=== PATIENT | male | born 1955 | race Hispanic/Latino ===

== ENCOUNTER 2017-08-08 13:30 | Inpatient (IN) | payer MEDICARE, BC ==
[2017-08-08 13:48] VITALS: BMI 29.1
--- NOTE | 2017-08-08 13:58 | ED PDOC ---
Arrival/HPI - General Chief Complaint: Psychiatric Evaluation Time Seen by Provider: 08/08/17 13:58 - History of Present Illness Narrative History of Present Illness (Text): 61 y/o M c PMHx HTN, seizure, CVA, hypothyroidism, joint replacements transferred from [facility] for psychiatric admission due to major depression. Medical clearance performed at transferring institution. Patient denies any current fever, dyspnea, or vomiting. Past Medical History - Cardiac Hx Cardiac Disorders: Yes Hx Hypertension: Yes - Neurological Hx Neurological Disorder: Yes HX Cerebrovascular Accident: Yes Hx Seizures: Yes - Endocrine/Metabolic Hx Endocrine Disorders: Yes Hx Hypothyroidism: Yes - Psychiatric Hx Psychophysiologic Disorder: Yes Hx Anxiety: Yes Hx Depression: Yes Hx Substance Use: Yes (last use 10 yrs ago) - Surgical History Hx Joint Replacement: Yes (bilateral knees and bilateral hips) Family/Social History Family/Social History: No Known Family HX Smoking Status: Never Smoked Hx Alcohol Use: Yes (last drink Saturday) Frequency of alcohol use: Daily Hx Substance Use: Yes (last use 10 yrs ago) Allergies/Home Meds Allergies/Adverse Reactions: Allergies No Known Allergies Allergy (Verified 08/08/17 13:47) Home Medications: Home Meds Medication Instructions Recorded Confirmed Levothyroxine [Synthroid] 50 mcg PO DAILY 08/08/17 08/08/17 Metoprolol Succinate [Toprol XL] 25 mg PO BID 08/08/17 08/08/17 levETIRAcetam [Keppra] 500 mg PO BID 08/08/17 08/08/17 Review of Systems - Physician Review All systems were reviewed & negative as marked: Yes - Review of Systems Constitutional: absent: Fevers Respiratory: absent: SOB Physical Exam - Physical Exam Narrative Physical Exam (Text): Gen: NAD Head: NC Eyes: PERRL ENT: MMM Neck: Supple CV: Regular rate Lungs: No accessory muscle use Abd: Soft, NT Extremities: Tremulous Neuro: Alert, no focal deficit Disposition/Present on Arrival - Present on Arrival Any Indicators Present on Arrival: No History of DVT/PE: No History of Uncontrolled Diabetes: No Urinary Catheter: No History of Decub. Ulcer: No History Surgical Site Infection Following: None - Disposition Have Diagnosis and Disposition been Completed?: Yes Diagnosis: Major depression Disposition: HOSPITALIZED Disposition Time: 13:58 Patient Plan: Admission Condition: GUARDED Forms: [facility] ([place])
[2017-08-08] MEDS ORDERED: Magnesium Hydroxide Susp 30 ml UD PO PRN (16:44)
[2017-08-08] MEDS ORDERED: Alum-Mag Hydrox-Simethicone Susp (30 mL) PO PRN (16:44)
[2017-08-08 17:00] VITALS: O2SAT 99
--- NOTE | 2017-08-08 17:52 | PCM.BM ---
<RojelioValente - Last Filed: 08/08/17 17:49> Treatment Plan Problems - Problems identified on initial assessmt ANXIETY RE ALCOHOL ABUSE Date Initiated: 08/08/17 Time Initiated: 17:50 Assessment reference: HP, NA Status: Active DEPRESSIVE MOOD Date Initiated: 08/08/17 Time Initiated: 17:50 Assessment reference: HP, NA Status: Active DENIAL Date Initiated: 08/08/17 Time Initiated: 17:51 Assessment reference: HP, NA Status: Active Treatment assets and liabiliti Patient Assests: cooperative, negotiates basic needs, cognitively intact Patient Liabilities: financial problems, poor support system, substance abuse - Milieu Protocol Maintain good personal hygiene: daily Encourage regular showers, daily Remind patient to perform daily oral care, daily Assist patient to perform ADL's Maintain personal safety: daily Educate patient to report safety concerns to staff, daily Monitor environment for contraband/sharps Medication safety: Monitor for expected outcome, potential side effects: daily, Assess barriers to learning: daily, Assess readiness for medication education: daily Discharge/Continuing Care - Education Needs Education Needs: Patient Medication, Patient Diagnosis/Disease Process, Patient Coping Skills, Patient Community resources, Patient Activities of Daily Living, Patient Health Practices/Safety, Patient Personal Hygiene/Grooming, Patient Aftercare Safety Plan - Discharge Discharge Criteria: Free of Suicidal thoughts, Free of Homicidal thoughts, Free of agitation <Kimberly Orta - Last Filed: 08/09/17 13:29> Family Contact Family involvement: Famliy/SO not involved <Kalie Chacon - Last Filed: 08/09/17 15:24>
[2017-08-09] MEDS: Levothyroxine 50 MCG TAB PO SCH (06:05)
[2017-08-09 07:42] LABS: BASO # 0.01 K/mm3 (0.0-2.0); BASO % 0.2 % (0.0-3.0); EOS # 0.1 (0.0-0.7); EOS % 2.3 % (1.5-5.0); GRAN # 3.45 (1.4-6.5); LYMPH # 1.6 (1.2-3.4); LYMPH % 27.8 % (22.0-35.0); MEAN CELL VOLUME 98.9 fl (80.0-105.0); MEAN CORPUSCULAR HEMOGLOBIN 33.9 pg (25.0-35.0); MEAN CORPUSCULAR HGB CONC 34.3 g/dl (31.0-37.0); MEAN PLATELET VOLUME 9.3 fl (7.0-11.0); MONO # 0.6 (0.1-0.6); MONO % 9.7 % (1.0-6.0); RBC 3.54 10^6/uL (3.5-6.1); RED CELL DISTRIBUTION WIDTH 15.2 % (11.5-14.5); WHITE BLOOD COUNT 5.8 10^3/ul (4.5-11.0)
[2017-08-09 08:04] LABS: ALB/GLOB RATIO 1.1 (1.1-1.8); ALBUMIN 3.5 g/dL (3.0-4.8); ALT/SGPT 58 U/L (7-56); AST/SGOT 77 U/L (17-59); BLOOD UREA NITROGEN 11 mg/dL (7-21); CALCIUM 8.6 mg/dL (8.4-10.5); GFR AFRICAN-AMERICAN > 60; GFR NON-AFRICAN AMERICAN > 60
[2017-08-09] MEDS: Multivitamin With Minerals Tab PO SCH (08:21)
[2017-08-09 11:29] LABS: IRON 57 ug/dL (45-180)
[2017-08-09 11:38] LABS: % IRON SATURATION 22 % (20-55); TOTAL IRON BINDING CAPACITY 260 ug/dL (261-462)
--- NOTE | 2017-08-09 14:30 | PCM.PSYCH ---
Initial Psychiatric Evaluation - Initial Psychiatric Evaluation Legal Status: Capacity Chief Complaint (in patient's own words): I am depressed Patient's Reaction to Hospitalization: Patient looking forward to some mood relief and stabilization of his alcohol withdrawal syndrome History of Present Illness and Precipitating Events: Patient with a long history of alcohol and other substance use. Eating back to his teens. 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 but has been on disability for the past 10 or so years because of orthopedic problems that have left him with ambulatory difficulties and a psychological scar as he is an ex- athlete who can no longer ambulate with facility. His alcohol and other substances including heroin, cocaine, Meg's Quaalude opiates have the led to a disrupted interpersonal relationships, but with the having been for several years and having other relationships all ending because of his substance use. His career as a teenager ended because of his substance use. He has one brother. His father had an alcohol history. The patient in the context of his present alcohol binge, is not under the care of a psychiatrist. He had tried to reach one in [facility] but without success. The for a number of years he has been under the care of a Dr. Kiya JEFFERS in [place] who had maintained him on Effexor or her target the patient has been hospitalized in detoxes/rehabs many times. He did make one suicide attempt by overdosing last year. Current Medications: Active Medications Generic Name Dose Route Start Last Admin Trade Name Freq PRN Reason Stop Dose Admin Acetaminophen 650 mg 08/08/17 16:44 08/09/17 03:31 Tylenol 325mg Tab PO 650 mg Q4 PRN Administration Pain, moderate (4-7) Al Hydrox/Mg Hydrox/Simethicone 30 ml 08/08/17 16:44 Maalox Plus 30 Ml PO DAILY PRN Upset Stomach Chlordiazepoxide 50 mg 08/08/17 16:19 08/09/17 10:59 Librium PO 50 mg Q4 PRN Administration Symptoms of alcohol withdrawl Protocol Folic Acid 1 mg 08/09/17 08:00 08/09/17 08:19 Folic Acid PO 1 mg DAILY JULIA Administration Levetiracetam 500 mg 08/08/17 16:30 08/09/17 08:19 Keppra PO 500 mg BID JULIA Administration Levothyroxine Sodium 50 mcg 08/09/17 06:00 08/09/17 06:05 Synthroid PO 50 mcg 0600 JULIA Administration Magnesium Hydroxide 30 ml 08/08/17 16:44 Milk Of Magnesia PO DAILY PRN Constipation Metoprolol Tartrate 25 mg 08/08/17 16:30 08/09/17 08:19 Lopressor PO 25 mg BID JULIA Administration Multivitamins/Minerals 1 tab 08/09/17 08:00 08/09/17 08:21 Therapeutic-M Tab PO 1 tab 0800 JULIA Administration Naltrexone HCl 50 mg 08/09/17 12:30 Revia PO DAILY JULIA Thiamine HCl 100 mg 08/09/17 08:00 08/09/17 08:19 Vitamin B1 Tab PO 100 mg DAILY JULIA Administration Trazodone HCl 50 mg 08/09/17 12:23 Desyrel PO HS PRN Insomnia Past Psychiatric History - Past Psychiatric History Prior Professional Help: Multiple detoxes and rehabs Prior Psychiatric Treatment: As above History of Abuse: Denies History of ETOH/Drug Use: Since teens History of Family Illness: Father has history of alcoholism. Several other relatives have had substance abuse problems. Pertinent Medical Hx (Current Medical&Sleep Prob, Allergies): Allergies Allergy/AdvReac Type Severity Reaction Status Date / Time iodine Allergy RASH Verified 05/23/17 07:30 Gabapentin [Neurontin] 300 mg PO Q8 #90 cap 05/15/17 Levothyroxine [Synthroid] 100 mcg PO DAILY@0630 #30 tab 05/15/17 Multimineral/Multivitamin [Therapeutic-M Tab] 1 tab PO DAILY tab 05/15/17 amLODIPine [Norvasc] 5 mg PO BID #60 tab 05/15/17 Divalproex [Depakote DR(*BID*)] 500 mg PO BID #60 tcp 05/30/17 Folic Acid 1 mg PO DAILY tab 05/30/17 Thiamine [Vitamin B1 Tab] 100 mg PO DAILY tab 05/30/17 Venlafaxine [Effexor XR] 150 mg PO DAILY #30 cer 05/30/17 Nystatin [Nystop Topical Powder] 1 applic TOP BID #1 bottle 05/31/17 Levothyroxine [Synthroid] 50 mcg PO DAILY 08/08/17 Metoprolol Succinate [Toprol XL] 25 mg PO BID 08/08/17 levETIRAcetam [Keppra] 500 mg PO BID 08/08/17 Mental Status Examination - Affect Affect: Depressed - Motor Activity Motor Activity: Calm - Reliability in Providing Information Reliability in Providing Information: Good - Speech Speech: Organized - Mood Mood: Neutral - Formal Thought Process Formal Thought Process: No Impairment - Obsessions/Compulsions Obsessions: No Compulsions: No - Cognitive Functions Orientation: Person, Place, Situation, Time Sensorium: Alert Attention/Concentration: Attentive Abstract Thinking: As evidence by literal perception of proverbs Estimate of Intelligence: Above Average Judgement: Intact, as evidence by: Insight regarding need for hospitalization Memory: Recent intact, as evidence by: Other, Remote intact, as evidenced by: Other - Risk Risk: Seizure, Withdrawal, Falls, Diminished functioning - Strength & Assets Inventory Strength & Assets Inventory: Intelligence, Education, Life experience, Cooperative - Limitations Limitations: Living alone, Other (Chronicity) DSM 5 DX - DSM 5 DSM 5 Diagnosis: Depression not otherwise specified Alcohol withdrawal syndrome Alcohol use disorder Polysubstance use disorderin remission Severe osteoarthritis - Recommended/Plan of Treatment Treatment Recommendations and Plan of Treatment: Symptom stabilization followed by referral to an intensive outpatient program Projected ELOS: One week Prognosis: Guarded
--- NOTE | 2017-08-09 15:50 | US ---
HISTORY: elevated lfts r/o fatty liver COMPARISON: None. TECHNIQUE: Sonographic evaluation of the right upper quadrant of the abdomen. FINDINGS: LIVER: Measures 16.7 cm in length. Patent portal vein. Portal venous flow: Hepatopetal. Unremarkable echogenicity of the liver parenchyma. No mass. No intrahepatic bile duct dilatation. GALLBLADDER: Unremarkable. No gallstones. COMMON BILE DUCT: Measures 5.3 mm. No stones. No dilatation. PANCREAS: Unremarkable as visualized. No mass. No ductal dilatation. RIGHT KIDNEY: Measures 5.0 x 9.7 cm in length. Normal echogenicity. No calculus, mass, or hydronephrosis. AORTA: No aneurysmal dilatation. IVC: Unremarkable. OTHER FINDINGS: None . IMPRESSION: No significant or acute findings to account for/ related to the clinical presentation.
[2017-08-09 16:39] LABS: HEPATITIS B SURFACE AG Negative (NEGATIVE)
[2017-08-09 16:41] LABS: FOLATE 15.4 ng/mL
[2017-08-09 16:45] LABS: HEPATITIS A IGM NEGATIVE (NEGATIVE); HEPATITIS B CORE AB NEGATIVE (NEGATIVE)
[2017-08-09 16:57] LABS: HEPATITIS C ANTIBODY NEGATIVE (NEGATIVE)
[2017-08-09] MEDS: ACAMPROSATE CALCIUM 333 MG PO SCH (17:45)
--- NOTE | 2017-08-10 01:18 | CON ---
DATE: 08/09/2017 MEDICAL CONSULTATION HISTORY OF PRESENT ILLNESS: This 61-year-old male was examined at his bedside. This case was reviewed in detail with himself and nurse, Valente Serrato, registered nurse. The patient is admitted to the [facility] with acute alcohol toxicity experiencing alcohol withdrawal syndrome. He has a longstanding history of alcohol abuse and misuse and is under the psychiatric followup of Dr. Morfin. The patient states he has chronic anxiety and depression and he is aware of chronic hypertension, hypothyroidism and degenerative arthritis. He states he is status post right and left hip replacements. The left hip was replaced twice and he is status post bilateral knee replacement and he is a retired professional plumber's helper. MEDICATIONS: Outpatient medications according to the patient include Keppra, Toprol, Synthroid, Norvasc, Effexor, thiamine, multivitamin, Neurontin, folic acid, and Depakote. ALLERGIES: THE PATIENT STATES HE IS ALLERGIC TO IODINE. SOCIAL HISTORY: He is a smoker, drinker and has a history of drug misuse. REVIEW OF SYSTEMS: CONSTITUTIONAL: Denied fever or chills. HEENT: Eyes, denied change in visual acuity. Ear review, denied hearing loss. Dentition, has poor dentition. NECK: Denied stiffness. CARDIAC: He has a history of chronic hypertension. PULMONARY: Denied cough or hemoptysis. GI: Denied hematemesis or melena. : Denied dysuria. SKIN: No rash. VASCULAR: No claudication. PSYCHOLOGICAL: Chronic depression, chronic anxiety, alcoholism. NEURO: He is markedly deconditioned and has history of alcoholic seizures. ENDOCRINOLOGICAL: Denied knowledge of diabetes mellitus. FAMILY HISTORY: Father at 53 of complications of alcohol abuse, mother at 80 of lung cancer. PHYSICAL EXAMINATION: VITAL SIGNS: Temperature 98.1, respirations 20, pulse 73, blood pressure 140/72, pulse ox 99% room air. GENERAL: The patient is alert, oriented and easily conversant. HEENT: Head: Normocephalic, atraumatic. Eyes: No icterus. Ears: Clear. Throat: Noninjected. Poor dentition. NECK: No stiffness. HEART: S1, S2. LUNGS: Clear. ABDOMEN: Soft. EXTREMITIES: No edema. SKIN: No rash. VASCULAR: Legs warm to touch. PSYCHOLOGICAL: Alert and oriented x3. NEURO: Grossly intact, but deconditioned. LABORATORY DATA: White count 5,800, hemoglobin 12, hematocrit 35, platelets 192,000. Sodium 137, K 3.8, chloride 103, bicarb 23, BUN 11, creatinine 0.8, random blood sugar 95, bilirubin 0.6, AST high 77, ALT high 58, alk phos normal 47. Vitamin B12 level 294. Folic acid 15.4, normal. Percent saturation 22; ferritin 306, normal; T4 normal, 5.9. TSH 4.41, normal. Hepatitis A, B, C serology is negative. IMPRESSION: This is a 61-year-old male with chronic alcoholism, history of alcohol abuse and misuse, chronic anxiety, chronic depression, history of alcoholic seizure syndrome, history of drug abuse, degenerative arthritis, status post hip and knee replacements, deconditioning, chronic hypertension, hypothyroidism and anemia of chronic disease. PLAN: The plan at present is to continue medication including Desyrel 50 mg p.o. at bedtime; folic acid 1 mg p.o. daily; Keppra 500 mg p.o. b.i.d.; Librium 50 mg p.o. every 4 hours p.r.n., alcohol withdrawal syndrome; Lopressor 25 mg p.o. b.i.d.; Synthroid 50 mcg p.o. daily; multivitamin 1 tablet daily; and thiamine 100 mg p.o. daily. The patient is ordered to have a hepatic ultrasound for completeness sake. He will continue on a heart-healthy soft bland diet with seizure precautions. I have asked the nursing staff to help in with physical therapy for ambulation safety and ultimate disposition will be decided by Dr. Morfin from Psychiatry. Greater than 75 minutes was spent in the care management, review of labs, orders, x-rays and counseling with this patient today. All questions were answered. Kaci Marquis MD [facility]
[2017-08-10] MEDS: Levothyroxine 50 MCG TAB PO SCH (06:32)
[2017-08-10 07:32] LABS: HEMOGLOBIN 11.6 g/dL (14.0-18.0); MEAN CELL VOLUME 99.4 fl (80.0-105.0); MEAN CORPUSCULAR HEMOGLOBIN 33.3 pg (25.0-35.0); MEAN CORPUSCULAR HGB CONC 33.5 g/dl (31.0-37.0); MEAN PLATELET VOLUME 9.2 fl (7.0-11.0); RBC 3.48 10^6/uL (3.5-6.1); WHITE BLOOD COUNT 5.7 10^3/ul (4.5-11.0)
[2017-08-10] MEDS: Multivitamin With Minerals Tab PO SCH (08:31)
[2017-08-10] MEDS: ACAMPROSATE CALCIUM 333 MG PO SCH ×3 (08:33→18:30)
--- NOTE | 2017-08-10 09:23 | PCM.PYCHPN ---
Psychiatric Progress Note - Psychiatric Progress Note Patient seen today, length of contact: 25 min Patient Chief Complaint: "can't sleep" Problems Identified/Issues Discussed: I reviewed assessment and recent notes. I met with patient at bedside. He is alert and well-oriented to month, year and circumstances. He is visibly tremulous but doesn't appear to be in distress. Indicates that he is feeling better on the unit, the medications are helping. Expresses frustration at his life-long history of insomnia "I've had trouble sleeping since I was 5 years old ". Patient never had a sleep study. Reports moodiness and mild irritability because of restless sleep. Doesn't feel sonata is beneficial. He is tolerating his current medications well. Reports seroquel was beneficial in the past "until it stopped working, I think I became used to it". He hasn't taken this medication in many months and he is willing to try some tonight to help with sleep and lability. Denies other concerns, denies any new pain or discomfort. Patient denies AVH and thought process is coherent. He has been visible on the unit, attending groups and socializing at times. There were no behavioral issues overnight. Diagnostic Results: Depression not otherwise specified Alcohol withdrawal syndrome Alcohol use disorder Polysubstance abuse disorder in remission Medication Change: Yes (Seroquel 100 mg po HS initiated) Medical Record Reviewed: Yes Mental Status Examination - Cognitive Function Orientation: Person, Place, Situation, Time Memory: Intact Attention: WNL Concentration: WNL Association: WNL Fund of Knowledge: WNL - Mood Mood: Neutral - Affect Affect: Constricted - Formal Thought Process Formal Thought Process: No Impairment - Suicidal Ideation Suicidal Ideation: No - Homicidal Ideation Homicidal Ideation: No Goal/Treatment Plan - Goal/Treatment Plan Progress Toward Problem(s) and Goals/Treatment Plan: * c/w current tx and plan * Initiate Seroquel 100 mg po HS to help with sleep and mood lability * Vitals reviewed and noted below: Selected Entries 08/10/17 07:10 Temperature 97.8 F Pulse Rate 65 Respiratory 18 Rate Blood Pressure 125/80 Laboratory Results - last 24 hr 08/09/17 08/09/17 08/09/17 07:30 07:30 07:30 WBC RBC Hgb Hct MCV MCH MCHC RDW Plt Count MPV Iron 57 TIBC 260 L % Saturation 22 Ferritin 306.0 Vitamin B12 294 Folate 15.4 Thyroxine (T4) 5.9 Hepatitis A IgM Ab Hep Bs Antigen Hep B Core IgM Ab Hepatitis C Antibody 08/09/17 08/10/17 07:30 07:00 WBC 5.7 RBC 3.48 L Hgb 11.6 L Hct 34.6 L MCV 99.4 MCH 33.3 MCHC 33.5 RDW 15.0 H Plt Count 178 MPV 9.2 Iron TIBC % Saturation Ferritin Vitamin B12 Folate Thyroxine (T4) Hepatitis A IgM Ab Negative Hep Bs Antigen Negative Hep B Core IgM Ab Negative Hepatitis C Antibody Negative * New floor labs noted below:
--- NOTE | 2017-08-10 22:21 | PN ---
DATE: 08/10/2017 SUBJECTIVE: This 61-year-old male was examined at his bedside. This case was reviewed in detail with nurse Milad Hoffman, registered nurse. The patient was admitted with acute alcoholism and alcohol withdrawal syndrome. He is currently under close psychiatric monitoring, and receiving withdrawal medication including Librium, Seroquel as well as thiamine and multivitamins and folic acid. The patient had a liver ultrasound performed yesterday that showed no evidence of fatty liver or liver masses, and a hepatitis A, B and C screen was negative as well. PHYSICAL EXAMINATION: GENERAL: On physical exam at the present time, he is lying in bed, markedly deconditioned. VITAL SIGNS: Has a temperature of 97.8, respirations 18, pulse 65, and blood pressure 125/80. HEENT: Head normocephalic, atraumatic. Eyes: No icterus. Ears: Clear. Throat: Noninjected. NECK: Supple. HEART: Regular S1 and S2. LUNGS: Clear. ABDOMEN: Soft. EXTREMITIES: No edema. SKIN: Without rash. VASCULAR: Legs warm to touch. PSYCHOLOGICAL: Alert and oriented x3. NEUROLOGICAL: Grossly intact. LABORATORY DATA: Current labs, hepatitis A, B and C serology negative. Sodium 137, potassium 3.8, chloride 103, bicarb 23, BUN 11, creatinine 0.8, random blood sugar 95. Iron 57, TIBC 260, percent saturation 22, ferritin 306. B12 294. Folic acid 15.4. Thyroid normal, 5.9. Bilirubin 0.6, AST 77, ALT 58 and alk phos 47. White count 5700, hemoglobin 11.6, hematocrit 34.6, platelets 178. IMPRESSION: This 61-year-old male with chronic alcoholism, elevated liver function testing secondary to alcohol toxicity with anemia of chronic disease, history of seizure syndrome, degenerative arthritis, status post hip and knee replacements, marked deconditioning, chronic hypertension and hypothyroidism. PLAN: The plan at present is to continue Desyrel 50 mg p.o. at bedtime, folic acid 1 mg p.o. daily, Keppra 500 mg p.o. b.i.d., Librium 50 mg p.o. every 4 hours p.r.n. alcohol withdrawal syndrome, Lopressor 25 mg p.o. b.i.d., Seroquel 100 mg p.o. at bedtime, Synthroid 50 mcg p.o. daily, multivitamin 1 tablet daily, and thiamine 100 mg p.o. daily. The patient is ordered to have physical therapy for reconditioning and gait training. He will be followed by Psychiatry for anxiety, depression and alcohol withdrawal. He remains on seizure precautions and a heart-healthy diet. Greater than 35 minutes was spent in the care management, review of labs, orders, x-rays, and discussion of this patient's case with himself and nursing today. All questions were answered. Kaci Marquis MD
[2017-08-11] MEDS: Levothyroxine 50 MCG TAB PO SCH (06:40)
[2017-08-11] MEDS: ACAMPROSATE CALCIUM 333 MG PO SCH ×3 (08:37→17:44)
[2017-08-11] MEDS: Multivitamin With Minerals Tab PO SCH (08:38)
--- NOTE | 2017-08-11 17:35 | PCM.PYCHPN ---
Psychiatric Progress Note - Psychiatric Progress Note Patient seen today, length of contact: 25 min Patient Chief Complaint: "can't sleep" Problems Identified/Issues Discussed: I reviewed recent notes and met with patient in the dayroom. He remains alert and well-oriented to month, year and circumstances. Remembers me from my introduction yesterday at bedside. Tremors are visibly improved today. They are minor and patient doesn't appear to be in distress. Indicates that he is feeling better and slept a lot better with initiation of seroquel 100 mg last night. Indicates he slept at least 5 hours. Affect is constricted, calm and mildly brighter. Patient denies AVH and thought process is coherent. Patient is tolerating his current medications well . Denies any new concerns, pain or discomfort. He has been visible on the unit, attending groups and socializing at times. Staff have noted that he appears less depressed and less anxious. Affect seems brighter and he is generally pleasant. There were no behavioral issues over the weekend. Diagnostic Results: Depression not otherwise specified Alcohol withdrawal syndrome Alcohol use disorder Polysubstance abuse disorder in remission Medication Change: Yes (Seroquel 100 mg po HS initiated) Medical Record Reviewed: Yes Mental Status Examination - Cognitive Function Orientation: Person, Place, Situation, Time Memory: Intact Attention: WNL Concentration: WNL Association: WNL Fund of Knowledge: WNL - Mood Mood: Neutral - Affect Affect: Constricted - Formal Thought Process Formal Thought Process: No Impairment - Suicidal Ideation Suicidal Ideation: No - Homicidal Ideation Homicidal Ideation: No Goal/Treatment Plan - Goal/Treatment Plan Progress Toward Problem(s) and Goals/Treatment Plan: * c/w current tx and plan * Initiated Seroquel 100 mg po HS on 08/10/17 to help with sleep and mood labilit * Appreciate f/u by Dr. Marquis on 08/10/17 * Vitals reviewed and noted below: Selected Entries 08/11/17 11:40 Temperature 97.2 F L Pulse Rate 70 Respiratory 16 Rate Blood Pressure 101/69 * New floor labs noted below: Laboratory Results - last 24 hr 08/09/17 08/09/17 08/09/17 07:30 07:30 07:30 WBC RBC Hgb Hct MCV MCH MCHC RDW Plt Count MPV Iron 57 TIBC 260 L % Saturation 22 Ferritin 306.0 Vitamin B12 294 Folate 15.4 Thyroxine (T4) 5.9 Hepatitis A IgM Ab Hep Bs Antigen Hep B Core IgM Ab Hepatitis C Antibody 08/09/17 08/10/17 07:30 07:00 WBC 5.7 RBC 3.48 L Hgb 11.6 L Hct 34.6 L MCV 99.4 MCH 33.3 MCHC 33.5 RDW 15.0 H Plt Count 178 MPV 9.2 Iron TIBC % Saturation Ferritin Vitamin B12 Folate Thyroxine (T4) Hepatitis A IgM Ab Negative Hep Bs Antigen Negative Hep B Core IgM Ab Negative Hepatitis C Antibody Negative *
--- NOTE | 2017-08-11 23:40 | PN ---
DATE: 08/11/2017 SUBJECTIVE: This 61-year-old male was examined in the psychiatric [facility]. His case was reviewed in detail with himself and nurse, Milad Hoffman, registered nurse. The patient remains cooperative and is being treated for multiple issues including acute alcoholism, alcohol withdrawal syndrome, chronic depression and acute anxiety. On a medical basis, he has anemia of chronic disease, seizure syndrome, chronic hypertension, hypothyroidism, degenerative arthritis and deconditioning. The patient was out of bed to a wheelchair. He is reportedly very cooperative with nursing staff and cooperating group therapy and at present, is receiving physical therapy for his multiple arthritic complaints secondary to spinal arthritis as well as hip and degenerative knee arthritis as well. PHYSICAL EXAMINATION: VITALS SIGNS: Temperature 97.2, respirations 16, pulse 70 and blood pressure 101/69. HEENT: Head is normocephalic, atraumatic. Eyes, no icterus. Ears, clear. Throat, noninjected. NECK: Supple. HEART: Was regular, S1 and S2. LUNGS: Clear. ABDOMEN: Soft. EXTREMITIES: No edema. SKIN: Without rash. NEUROLOGIC: Intact. PSYCHOLOGIC: Alert. VASCULAR: Legs warm to touch. NEURO: Deconditioned. LABORATORY DATA: White count 5700, hemoglobin 11.6, hematocrit 34.6, platelets 178,000. Sodium 137, K 3.8, chloride 103, bicarb 23, BUN 11, creatinine 0.8, random blood sugar 95. Iron level 57, percent saturation 22, ferritin level 306. Vitamin B12 level 294. Folic acid 15.4 and T4 was normal at 5.9. IMPRESSION: A 61-year-old male with chronic alcoholism, history of drug misuse and abuse as well as history of smoking, chronic anxiety, depression, anemia of chronic disease, seizure syndrome, chronic hypertension, hypothyroidism and deconditioning secondary to spinal, hip and knee arthritis. PLAN: The plan at present is to continue Desyrel, folic acid, Keppra, lithium, Lopressor, Seroquel, Synthroid, multivitamin, thiamine and Zofran p.r.n. nausea, vomiting. The patient is out of bed to chair. He is ordered to have physical therapy for reconditioning and gait training. He will continue on a heart-healthy diet and seizure precautions. Ultimate plan will be for disposition to be decided by Dr. Morfin from Psychiatry and the patient was counseled regarding all the issues and pursuing to possibly follow up with Orthopedics as an outpatient for further management of spinal, hip and knee arthritic conditions as well. Kaci Marquis MD MTDRasheeda
[2017-08-12] MEDS: Levothyroxine 50 MCG TAB PO SCH (06:45)
[2017-08-12] MEDS: Multivitamin With Minerals Tab PO SCH (08:32)
[2017-08-12] MEDS: ACAMPROSATE CALCIUM 333 MG PO SCH ×3 (08:33→17:37)
--- NOTE | 2017-08-12 14:00 | PN ---
DATE: 08/12/2017 SUBJECTIVE: This 61-year-old male remains hospitalized, being treated for acute alcohol withdrawal syndrome in the setting of chronic alcoholism, anxiety, depression and medical comorbidities of seizure syndrome, hypertension, spinal arthritis, degenerative joint disease of hip and knees and hypothyroidism. The patient at present remains cooperative with nursing staff as well as physical therapy. PHYSICAL EXAMINATION VITAL SIGNS: Temperature was 97.2, respirations 20, pulse 70 and blood pressure 122/86. Physical exam is unchanged. LABORATORY DATA: White count 5700, hemoglobin of 11.6, hematocrit 34.6, platelets 178,000. Sodium 137, K 3.8, chloride 103, bicarb 23, BUN of 11, creatinine 0.8, random blood sugar 95. IMPRESSION: A 61-year-old male admitted with acute alcohol withdrawal syndrome, chronic alcoholism, anxiety, depression, seizure syndrome, hypertension, hypothyroidism, anemia of chronic disease and degenerative joint disease. PLAN: The plan is to maintain this patient on the Psychiatric Unit. He is being followed daily by Dr. Morfin from Psychiatry. His disposition will be decided by him and he will continue on medication including Desyrel, folic acid, Keppra, Librium, Lopressor, Seroquel, Synthroid, multivitamin and thiamine. Kaci Marquis MD MTDD
--- NOTE | 2017-08-12 22:24 | PN ---
DATE: 08/12/2017 IDENTIFYING INFORMATION: The patient is a 61-year-old white male with a long history of alcohol abuse and associated depression. He has a history of chronic hypertension, hypothyroidism, and degenerative arthritis and is status post bilateral hip replacements (with a left hip having been replaced twice). He also has a history of what appear to be alcohol withdrawal seizures. His chart was reviewed and the case was reviewed with the nursing. He is presently alerted, oriented, was strenuous, has ambulatory difficulties, sufficient insights are recognized and his mood is improving. He spoke of deleterious effects of living with 3 other people in his apartment, friends ( couple) he came up from [place], one of whom has substance abuse problem. His other boarder does not. He does not appear to be psychotic or, homicidal or suicidal with show only cognitive impairment. The patient is currently being maintained on Librium p.r.n. scheduled, with Keppra. He has been started on Revia and Seroquel. The CBC yesterday shows low hemoglobin of 11.6 and hematocrit 34.6. Biochemical profile shows low TIBC of 260 with slightly elevated AST 77, ALT 58. Hepatitis screen is negative. I have discussed the case with social work with regard to the outpatient drug rehabilitation program. Uday Morfin MD/ PhD
[2017-08-13] MEDS: Levothyroxine 50 MCG TAB PO SCH (05:08)
[2017-08-13 06:34] VITALS: TEMP 97.6
[2017-08-13] MEDS: Multivitamin With Minerals Tab PO SCH (09:04)
[2017-08-13] MEDS: ACAMPROSATE CALCIUM 333 MG PO SCH ×3 (09:04→17:05)
[2017-08-13] MEDS ORDERED: TraMADol/Apap 37.5/325 mg Tab PO PRN (12:53)
[2017-08-13] MEDS: TraMADol/Apap 37.5/325 mg Tab PO PRN (13:11)
--- NOTE | 2017-08-13 16:40 | PN ---
DATE: 08/13/2017 SUBJECTIVE: This 61-year-old male was examined in the day-room, sitting in his wheelchair in a group session. He complained of back and leg discomfort secondary to sitting in his wheelchair and requested pain management. This was discussed in detail with himself and his nurse and the patient will have an order placed for physical therapy for reconditioning and gait training, Ultracet 1 p.o. every 8 hours p.r.n. severe pain and Tylenol 650 p.o. every 4 hours p.r.n. [id number] pain. PHYSICAL EXAMINATION VITAL SIGNS: Temperature is 97.6, respirations 18, pulse 66 and blood pressure 126/74. HEENT: Head is normocephalic, atraumatic. Eyes: No icterus. Ears clear. Throat: Noninjected. NECK: Supple. HEART: Regular S1, S2. LUNGS: Clear. ABDOMEN: Soft. EXTREMITIES: No edema. SKIN: Without rash. NEUROLOGICAL: Intact. PSYCHOLOGICAL: Clear. VASCULAR: Legs warm to touch. IMPRESSION: A 61-year-old male admitted with alcohol abuse and misuse, acute alcohol withdrawal syndrome with history of chronic depression, anxiety neurosis, history of IV drug misuse and abuse in his past with history of seizure syndrome, chronic hypertension, hypothyroidism and degenerative arthritis. PLAN: The plan as outlined will be to continue Desyrel, folic acid, Keppra, Librium, Lopressor, Seroquel, Synthroid, multivitamin, thiamine and Tylenol. I have ordered Ultracet, physical therapy and have discussed this with the patient and nursing. Greater than 35 minutes were spent in the care management, review of labs and orders with the patient and nursing. All questions were answered. Kaci Marquis MD MTDD
[2017-08-14] MEDS: Levothyroxine 50 MCG TAB PO SCH (06:10)
[2017-08-14] MEDS: TraMADol/Apap 37.5/325 mg Tab PO PRN (06:10)
[2017-08-14 07:09] VITALS: BP 145/97; PULSE 69; RESP 20
[2017-08-14] MEDS: Multivitamin With Minerals Tab PO SCH (08:43)
[2017-08-14] MEDS: ACAMPROSATE CALCIUM 333 MG PO SCH ×2 (08:46→13:00)
--- NOTE | 2017-08-14 08:55 | PN ---
DATE: 08/13/2017 SUBJECTIVE: The patient is a 61-year-old depressed, white male with a long history of alcohol abuse. He continues to complain of back and leg discomfort. In physical therapy for reconditioning and gait training has been ordered. He also has a history of seizures in the past that possibly due to withdrawal, chronic hypertension, hypothyroidism, and degenerative arthritis. He has indicated that he has been in more than 20 inpatient drug and alcohol rehabs and has participated in AA meetings in the past with he feeling that all of these have been ineffective. Psychotropically, he has been maintained on trazodone p.r.n., Keppra 500 mg b.i.d., ReVia 50 mg every day and Seroquel 100 mg at bedtime. Blood pressure 111/71, pulse 64, temperature 97.6, respiratory rate 18. CBC and diff today showed low hemoglobin of 11.6, [address]. Marquis's notes reviewed. Uday Morfin MD/ PhD
--- NOTE | 2017-08-14 19:23 | PN ---
DATE: 08/14/2017 SUBJECTIVE: This 61-year-old male was examined in the day room in the presence of nurse, Anisa Ruth who states the patient is cleared for discharge to home by Dr. Morfin from Psychiatry. The patient has multiple medical issues including seizure syndrome; hypertension; hypothyroidism; peripheral neuropathy; spinal, hip, and knee arthritis; and anemia of chronic disease. He will require further management of his psychiatric issues including anxiety, depression, and addiction disorder. OBJECTIVE: VITAL SIGNS: At the time of my interview, his temperature was 97.6, respirations 20, pulse 69, and blood pressure 145/97. DISCHARGE LABORATORY DATA: Shows white count 5700, hemoglobin 11.6, hematocrit 34.6, and platelets 178,000. Sodium 137, K 3.8, chloride 103, bicarb 23. BUN 11, creatinine 0.8. Random blood sugar 95. Thyroid function is stable with a T4 of 5.9. Vitamin B12 of 294. Folic acid 15.4. AST was elevated at 77, ALT 58 with a liver ultrasound showing no evidence of hepatic mass or cirrhosis. The patient was advised to follow up with his primary care physician upon return to his home in [place], Dr. Sanders, and to follow up with Dr. Morfin from Psychiatry as well. His medications were reviewed. The patient was cognizant of their names and dosages, and is medically cleared for discharge to home today. Kaci Marquis MD MTDRasheeda
== END 2017-08-14 15:37 | disposition home or self-care (01) | DRG 881 ==
LOC: ED 13:30 → ERH 13:58 → MERGE 13:58 → PSYC 16:11
PROVIDERS: ADMIT Psychiatry & Neurology Addiction Medicine; ATTEND Psychiatry & Neurology Addiction Medicine
PROC: GZ3ZZZZ Medication Management (ICD-10-PCS; principal; 2017-08-10)
DX: F32.9 Major depressive disorder, single episode, unspecified (principal); F10.239 Alcohol dependence with withdrawal, unspecified; I10 Essential (primary) hypertension; E03.9 Hypothyroidism, unspecified; D63.8 Anemia in other chronic diseases classified elsewhere; G47.00 Insomnia, unspecified; F41.1 Generalized anxiety disorder; G62.9 Polyneuropathy, unspecified; R56.9 Unspecified convulsions; M46.90 Unspecified inflammatory spondylopathy, site unspecified; F17.200 Nicotine dependence, unspecified, uncomplicated; Z91.5 Personal history of self-harm; Z86.73 Personal history of transient ischemic attack (TIA), and cerebral infarction without residual deficits; Z96.643 Presence of artificial hip joint, bilateral; Z96.653 Presence of artificial knee joint, bilateral